=== PATIENT | female | born 1990 | race Caucasian/White ===

== ENCOUNTER 2018-03-26 16:42 | Emergency (ER) | payer BC ==
[2018-03-26] MEDS ORDERED: Sodium Chloride 0.9% 1,000 ML IV SCH (16:45)
[2018-03-26] MEDS ORDERED: Metoclopramide 10 MG/2 ML SDV IVPUSH ONE (16:46)
[2018-03-26] MEDS ORDERED: LORazepam 2 MG/ML SDV IVPUSH ONE (16:46)
[2018-03-26] MEDS ORDERED: HYDROmorphone 1 MG/ML Syringe IVPUSH ONE (16:46)
--- NOTE | 2018-03-26 16:51 | EDM.PDOC ---
ED HPI GENERAL MEDICAL PROBLEM - General Chief Complaint: Trauma Stated Complaint: FELL OFF HORSE Time Seen by Provider: 03/26/18 16:44 Source of Information: Reports: Patient History Limitations: Reports: No Limitations - History of Present Illness INITIAL COMMENTS - FREE TEXT/NARRATIVE: 27-year-old female presents to the ED by private vehicle. Apparently she was bucked off a horse location is not yet clear. She states that she could not get up or walk after being thrown off a horse. She landed hard on her right side. Most her pain is in her right lower quadrant of her abdomen along the right groin and inguinal ligament area. Denies hitting her head or losing consciousness. She is under the influence of alcohol. 90 pain on compression of her ribs. Apparently was equal to both lung goddard. He does have pain in her mid thoracic spine and lumbar spine to palpation. No obvious pelvic fractures. I could internally externally rotate both legs without evidence of fracture. Onset: Today Onset Date: 03/26/18 Onset Time: 16:00 Duration: Minutes: Location: Reports: Abdomen (Particularly right lower quadrant along the right inguinal ligament and superior to this.), Back (At the thoracolumbar junction and lumbar spine area.), Pelvis. Denies: Head, Face, Neck, Chest Quality: Reports: Ache Severity: Moderate Improves with: Reports: None Worsens with: Reports: Movement (And deep breathing) Context: Reports: Trauma (States she was bucked off a horse.). Denies: Activity , Exercise, Lifting, Sick Contact Associated Symptoms: Reports: Malaise. 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 Musculoskeletal History: Reports: Other (See Below) Other Musculoskeletal History: right hip with screws; lower back decompression 4 vertebraes(2015) - Past Surgical History Neurological Surgical History: Reports: Lumbar Spine (L4/L5/S1 microdiscectomy 2015), Other (See Below) (Patient has a screw through the right sacroiliac joint.) Musculoskeletal Surgical History: Reports: Other (See Below) (Right hip fusion 2016) Social & Family History - Living Situation & Occupation Living situation: Reports: Single, with Significant Other (Fiance), with Family (Daughter) Occupation: Employed ([employer] p[employer]) Review of Systems - Review of Systems Review Of Systems: See Below Constitutional: Reports: No Symptoms Eyes: Reports: No Symptoms Ears: Reports: No Symptoms Nose: Reports: No Symptoms Mouth/Throat: Reports: No Symptoms Respiratory: Reports: Shortness of Breath. Denies: Wheezing, Pleuritic Chest Pain, Cough Cardiovascular: Reports: No Symptoms GI/Abdominal: Reports: Abdominal Pain (Right lower quadrant) Genitourinary: Reports: No Symptoms Musculoskeletal: Reports: Back Pain (Mid thoracic and lumbar spine on palpation. Alignment is normal), Other. Denies: Leg Pain Skin: Reports: No Symptoms Neurological: Reports: No Symptoms Psychiatric: Reports: Anxiety, Other (Strong smell of alcohol her breath.) ED EXAM, GENERAL - Physical Exam Exam: See Below Exam Limited By: No Limitations General Appearance: Alert, WD/WN, Moderate Distress Eye Exam: Bilateral Eye: Normal Inspection Throat/Mouth: Normal Inspection, Normal Lips, Normal Teeth, Normal Oropharynx, Other Head: Atraumatic, Normocephalic (No evidence of any blood in the oropharynx or injury to the tongue.) Neck: Normal Inspection, Supple, Non-Tender, Full Range of Motion. No: Lymphadenopathy (L), Lymphadenopathy (R) Respiratory/Chest: Lungs Clear, Normal Breath Sounds, Chest Non-Tender, Respiratory Distress (Mild tachypnea.), Other Cardiovascular: Normal Peripheral Pulses, Regular Rate, Rhythm, No Edema, No Gallop, No Murmur, No Rub, Tachycardia (Resting tachycardia at 1 10/m) Peripheral Pulses: 3+: Posterior Tibial (L), Posterior Tibial (R), Dorsalis Pedis (L), Dorsalis Pedis (R) GI/Abdominal: Normal Bowel Sounds, Soft, Non-Tender, No Organomegaly, No Abnormal Bruit, No Mass, Pelvis Stable Back Exam: Vertebral Tenderness ( thoracic spine at the thoracolumbar junction and throughout the lumbar spine particularly L4-L5 level. Alignment appears to be normal by palpation. throughout the lumbar spine), Other (Pain to palpation mid) Extremities: Other (I could lift both legs and internally externally rotate both hips without any obvious pain or deformity) Neurological: Alert, Oriented, CN II-XII Intact, Normal Cognition Psychiatric: Anxious Skin Exam: Warm, Dry, Intact, Normal Color, No Rash Course - Vital Signs Last Recorded V/S: Last Vital Signs Temp 37.1 C 03/26/18 18:35 Pulse 90 03/26/18 18:35 Resp 16 03/26/18 18:35 BP 112/68 03/26/18 18:35 Pulse Ox 96 03/26/18 18:35 - Orders/Labs/Meds Orders: Active Orders 24 hr Category Date Time Status Sodium Chloride 0.9% [Normal Saline] 1,000 ml Med 03/26/18 16:45 Active IV ASDIRECTED Medication Orders Sodium Chloride (Normal Saline) 1,000 mls @ 150 mls/hr IV ASDIRECTED ELIZABETH Last Admin: 03/26/18 17:05 Dose: 150 mls/hr Labs: Laboratory Tests 03/26/18 03/26/18 03/26/18 Range/Units 16:50 16:50 16:50 WBC 12.89 H (3.98-10.04) K/mm3 RBC 5.13 (3.98-5.22) M/mm3 Hgb 15.4 (11.2-15.7) gm/L Hct 46.0 H (34.1-44.9) % MCV 89.7 (79.4-94.8) fl MCH 30.0 (25.6-32.2) pg MCHC 33.5 (32.2-35.5) g/dl RDW Std Deviation 41.6 (36.4-46.3) fL Plt Count 332 (182-369) K/mm3 MPV 9.9 (9.4-12.3) fl Neutrophils % (Manual) 54 (40-60) % Band Neutrophils % 0 (0-10) % Lymphocytes % (Manual) 40 (20-40) % Atypical Lymphs % 0 % Monocytes % (Manual) 1 L (2-10) % Eosinophils % (Manual) 5 (0.7-5.8) % Basophils % (Manual) 0 L (0.1-1.2) Platelet Estimate Adequate RBC Morph Comment Normal PT 9.8 (9.5-12.1) SECONDS INR < 0.93 APTT 28 (24-31) SECONDS Sodium 143 (136-145) mEq/L Potassium 3.0 L (3.5-5.1) mEq/L Chloride 106 (98-107) mEq/L Carbon Dioxide 25 (21-32) mEq/L Anion Gap 15.0 (5-15) BUN 9 (7-18) mg/dL Creatinine 0.7 (0.55-1.02) mg/dL Est Cr Clr Drug Dosing TNP Estimated GFR (MDRD) > 60 (>60) mL/min BUN/Creatinine Ratio 12.9 L (14-18) Glucose 97 (74-106) mg/dL Calcium 8.5 (8.5-10.1) mg/dL Total Bilirubin 0.2 (0.2-1.0) mg/dL AST 30 (15-37) U/L ALT 25 (14-59) U/L Alkaline Phosphatase 114 (46-116) U/L Creatine Kinase 265 H (26-192) U/L Total Protein 7.4 (6.4-8.2) g/dl Albumin 3.8 (3.4-5.0) g/dl Globulin 3.6 gm/dL Albumin/Globulin Ratio 1.1 (1-2) HCG, Qual (NEGATIVE) Urine Color (Yellow) Urine Appearance (Clear) Urine pH (5.0-8.0) Ur Specific [place] (1.005-1.030) Urine Protein (Negative) Urine Glucose (UA) (Negative) Urine Ketones (Negative) Urine Occult Blood (Negative) Urine Nitrite (Negative) Urine Bilirubin (Negative) Urine Urobilinogen (0.2-1.0) Ur Leukocyte Esterase (Negative) Urine RBC (0-5) /hpf Urine WBC (0-5) /hpf Ur Epithelial Cells (0-5) /hpf Urine Bacteria (FEW) /hpf Urine Mucus (FEW) /hpf Ethyl Alcohol 0.22 (0.00) gm% 03/26/18 03/26/18 Range/Units 16:50 18:20 WBC (3.98-10.04) K/mm3 RBC (3.98-5.22) M/mm3 Hgb (11.2-15.7) gm/L Hct (34.1-44.9) % MCV (79.4-94.8) fl MCH (25.6-32.2) pg MCHC (32.2-35.5) g/dl RDW Std Deviation (36.4-46.3) fL Plt Count (182-369) K/mm3 MPV (9.4-12.3) fl Neutrophils % (Manual) (40-60) % Band Neutrophils % (0-10) % Lymphocytes % (Manual) (20-40) % Atypical Lymphs % % Monocytes % (Manual) (2-10) % Eosinophils % (Manual) (0.7-5.8) % Basophils % (Manual) (0.1-1.2) Platelet Estimate RBC Morph Comment PT (9.5-12.1) SECONDS INR APTT (24-31) SECONDS Sodium (136-145) mEq/L Potassium (3.5-5.1) mEq/L Chloride (98-107) mEq/L Carbon Dioxide (21-32) mEq/L Anion Gap (5-15) BUN (7-18) mg/dL Creatinine (0.55-1.02) mg/dL Est Cr Clr Drug Dosing Estimated GFR (MDRD) (>60) mL/min BUN/Creatinine Ratio (14-18) Glucose (74-106) mg/dL Calcium (8.5-10.1) mg/dL Total Bilirubin (0.2-1.0) mg/dL AST (15-37) U/L ALT (14-59) U/L Alkaline Phosphatase (46-116) U/L Creatine Kinase (26-192) U/L Total Protein (6.4-8.2) g/dl Albumin (3.4-5.0) g/dl Globulin gm/dL Albumin/Globulin Ratio (1-2) HCG, Qual Negative (NEGATIVE) Urine Color Light yellow (Yellow) Urine Appearance Clear (Clear) Urine pH 7.0 (5.0-8.0) Ur Specific [place] 1.015 (1.005-1.030) Urine Protein Negative (Negative) Urine Glucose (UA) Negative (Negative) Urine Ketones Negative (Negative) Urine Occult Blood Negative (Negative) Urine Nitrite Negative (Negative) Urine Bilirubin Negative (Negative) Urine Urobilinogen 0.2 (0.2-1.0) Ur Leukocyte Esterase Negative (Negative) Urine RBC 0-5 (0-5) /hpf Urine WBC 0-5 (0-5) /hpf Ur Epithelial Cells 0-5 (0-5) /hpf Urine Bacteria Occasional (FEW) /hpf Urine Mucus Not seen (FEW) /hpf Ethyl Alcohol (0.00) gm% Meds: Medications Generic Name Dose Route Start Last Admin Trade Name Freq PRN Reason Stop Dose Admin Sodium Chloride 1,000 mls @ 150 mls/hr 03/26/18 16:45 03/26/18 17:05 Normal Saline IV 150 mls/hr ASDIRECTED ELIZABETH Administration Discontinued Medications Generic Name Dose Route Start Last Admin Trade Name Freq PRN Reason Stop Dose Admin Hydromorphone HCl 0.5 mg 03/26/18 16:46 03/26/18 17:03 Dilaudid IVPUSH 03/26/18 16:47 0.5 mg ONETIME ONE Administration Iopamidol 100 ml 03/26/18 17:13 03/26/18 17:18 Isovue-300 (61%) IVPUSH 03/26/18 17:14 100 ml ONETIME ONE Administration Lorazepam 1 mg 03/26/18 16:46 03/26/18 16:58 Ativan IVPUSH 03/26/18 16:47 1 mg ONETIME ONE Administration Metoclopramide HCl 7.5 mg 03/26/18 16:46 03/26/18 17:01 Reglan IVPUSH 03/26/18 16:47 7.5 mg ONETIME ONE Administration Sodium Chloride 10 ml 03/26/18 17:13 03/26/18 17:18 Saline Flush FLUSH 03/26/18 17:14 10 ml ONETIME ONE Administration - Radiology Interpretation Free Text/Narrative:: 27-year-old female presents to the ED after being bucked off a horse. Unclear exactly how long they've from the time of accident before she arrived in the ED. She came by private vehicle. Chief complaint is right lower quadrant abdominal pain. However she has pain at the thoracic lumbar junction throughout the lumbar spine and slightly along her right lower rib cage. Landed hard on her right side. She is dressed appropriately for the weather. No lower extremity injuries. No apparent injuries to the upper extremities head or neck. Plan Will proceed with CT chest abdomen and pelvis with IV contrast only. Also x -ray of the thoracic sick and lumbar spine will be done. - Re-Assessments/Exams Free Text/Narrative Re-Assessment/Exam: 03/26/18 18:49 CT lumbar spine shows a unilateral spondylitic defect on the right side at L5-S1. As mentioned above this is felt to be all due to slight surrounding sclerosis. There is evidence of a screw into the right sacroiliac joint from previous traumautic fixation.No acute fractures are identified on CT scan study of the abdomen and pelvis. CT thoracic spine shows nothing acute appreciated on CT of the thoracic spine. CT chest nothing acute on CT of the chest other than an old rib fracture right sixth rib. CT abdomen and pelvis reveals liver to show no focal parenchymal abnormality. Spleen appears within normal limits and ankle and show no nodules pancreas is within normal limits kidneys show symmetric contrast enhancement and appear with normal limits gallbladder contains no calcified gallstones. Aorta shows normal size and enhancement. No retroperitoneal adenopathy or mesenteric abnormalities are identified. Incidental IUD is noted within the uterus. A pelvic mass or adenopathy is noted. Bladder is slightly distended with urine appendix is seen and is normal. No bowel abnormality appreciated although oral contrast was not utilized. 03/26/18 18:53 Labs reveal a slightly elevated white count at 12.89. 54% neutrophils and no band cells reported. Hemoglobin is 15.4 with hematocrit of 46.0. MCV is 89.7. Platelet count is 332,000. He is 9.8 with an INR was less than 0.93. PTT is 28. Sodium 143 potassium slightly low at 3.0. Chloride 106 with a bicarbonate of 25. And a gap is 15.0. BUN is 9 with a creatinine of 0.7. GFR is greater than 60. Glucose is 97 with a calcium of 8.5. Liver function is normal. Creatinine kinase is 265 slightly elevated. HCG was negative blood alcohol is currently 0.22 g percent. Patient does have a full bladder but will have to use a bed holman since she isn't willing at this time to get up from her bed due to pain. No serious injuries are identified in all of the CT scans performed. Plan will be to keep her in the ED until she is a little more sober and reasonable. At this time she states she can't get up because of the pain. 03/26/18 20:55 patient has sobered up and decided to finally get up and did walk to the bathroom on her own volition. She will thus be discharged to home. Departure - Departure Time of Disposition: 20:55 Disposition: Home, Self-Care 01 Condition: Fair Clinical Impression: Contusion, abdominal wall Qualifiers: Encounter type: initial encounter Qualified Code(s): S30.1XXA - Contusion of abdominal wall, initial encounter Contusion of right hip Qualifiers: Encounter type: initial encounter Qualified Code(s): S70.01XA - Contusion of right hip, initial encounter - Discharge Information *PRESCRIPTION DRUG MONITORING PROGRAM REVIEWED*: Not Applicable *COPY OF PRESCRIPTION DRUG MONITORING REPORT IN PATIENT TAI: Not Applicable Instructions: Contusion, [id number] Referrals: PCP,None [Primary Care Provider] - Forms: ED Department Discharge Additional Instructions: Evaluation the emergency room today in regards to injuries sustained from being bucked off a horse. History suggests that you landed hard on your right side. Pain primarily in your right lower abdominal wall above the inguinal ligament and right hip. Neck were within normal limits. Chest wall showed no evidence of any trauma. CT of your back i.e. thoracic and lumbar spine was carried out and reveals evidence of old trauma to the right SI joint with previous fixation. Well grown together infused with no sign of fractures. No fractures are identified throughout the thoracic or lumbar spine. Chest CT showed an old fracture sixth rib it is healed. No injury to the lung or heart was identified. Also similarly CT of the abdomen did not show any injuries to the liver the spleen the kidneys. There is increased stool throughout the colon. Uterus contains an IUD. No injuries to the intra-abdominal organs was identified. Pelvis is otherwise uninjured. Her alcohol was 0.22 g percent and therefore you are not be able to operate a motor vehicle for 16-18 hours until your blood alcohol level would be under 0.08. Expect to be stiff and sore over the next couple of days from falling from the horse. Motrin 600 mg every 6 hours needed for repeat LEEP for pain and inflammation. Ice pack to sore areas one half hour out of every 4 hours for the next 2 days and then may apply heat to sore areas. - My Orders Last 24 Hours: My Active Orders 03/26/18 16:45 Sodium Chloride 0.9% [Normal Saline] 1,000 ml IV ASDIRECTED - Assessment/Plan Last 24 Hours: My Active Orders 03/26/18 16:45 Sodium Chloride 0.9% [Normal Saline] 1,000 ml IV ASDIRECTED
[2018-03-26] MEDS ORDERED: Iopamidol 612 MG/ML 100 ML Bottle IVPUSH ONE (17:13)
[2018-03-26] MEDS ORDERED: Sodium Chloride 0.9% 10 ML Syringe FLUSH ONE (17:13)
--- NOTE | 2018-03-26 18:15 | CT ---
CT chest Technique: Multiple axial sections through the chest were obtained. Intravenous contrast was utilized. Comparison: No prior chest CT, chest x-ray performed on 02/05/18 is available. Findings: Slight soft tissue density is noted within the superior mediastinum felt to relate to residual thymic tissue. Mediastinum and hilar regions show no adenopathy or mass. Opacified great vessel shows no discrete abnormality. Pulsation artifact is noted within the ascending aorta. No pleural effusions are seen. Lungs are clear. No pulmonary contusion is seen. No pleural effusions or pneumothorax is seen. Old rib fracture with callus is seen within the right sixth rib. Reconstructed sagittal images shows no discrete fracture within the sternum. Impression: 1. Nothing acute is seen on CT study of the chest. 2. Incidental note of old rib fracture within the right sixth rib. Diagnostic code #2 CT abdomen and pelvis Technique: Multiple axial sections were obtained from above the dome of the diaphragm inferiorly through the pubic symphysis. Intravenous contrast was utilized. No oral contrast has been given. Comparison: No prior abdominal or pelvic imaging. Findings: Liver shows no focal parenchymal abnormality. Spleen appears within normal limits. Adrenal glands show no nodule. Pancreas is within normal limits. Kidneys show symmetric contrast enhancement and appear within normal limits. Gallbladder contains no calcified gallstones. Aorta shows normal size and enhancement. No retroperitoneal adenopathy or mesenteric abnormalities are seen. Incidental IUD is noted within the uterus. No pelvic mass or adenopathy is seen. Bladder is slightly distended with urine. Appendix is seen and is normal. No bowel abnormality appreciated although oral contrast was not utilized. Bone window settings shows fixation screws across the right sacroiliac joint. No acute fracture is seen within the pelvis. Impression: 1. Incidental findings. Nothing acute is appreciated on CT study of the abdomen and pelvis. Diagnostic code #2
--- NOTE | 2018-03-26 18:24 | CT ---
CT lumbar spine Technique: Multiple axial sections through the lumbar spine were obtained. Reconstructed sagittal and coronal images were reviewed. Comparison: Previous MRI lumbar spine study of 05/13/14 was utilized. Findings: Vertebral body heights and disc spaces are preserved. Fixation screws is again seen across the right sacroiliac joint. Minimal degenerative change is noted within the right apophyseal joint. No acute fracture is seen. No traumatic disc herniation is seen. No abnormal subluxation is seen. Spondylolytic defect is seen seen unilaterally on the right side at L5-S1 which appears old as slight sclerosis is seen around this region. Impression: 1. 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 As mentioned above, this is felt to be old due to slight surrounding sclerosis. 2. Nothing acute is seen on CT study of the abdomen and pelvis. Diagnostic code #2
--- NOTE | 2018-03-26 18:24 | CT ---
CT thoracic spine Technique: Multiple axial sections were obtained through the thoracic spine. Reconstructed coronal and sagittal images were reviewed. Comparison: No prior thoracic spine study. Findings: Vertebral body heights and disc spaces are maintained. Vertebral bodies and posterior arches are intact with no fracture being seen. No disc herniation is appreciated. No abnormal subluxation is seen. No bony central or bony neural foraminal stenosis is seen. Impression: 1. Nothing acute is appreciated on CT study of the thoracic spine. Diagnostic code #1
== END 2018-03-26 21:10 | disposition home or self-care (01) ==
LOC: JD.ED 16:42
DX: S30.1XXA Contusion of abdominal wall, initial encounter (principal); S70.01XA Contusion of right hip, initial encounter; V80.010A Animal-rider injured by fall from or being thrown from horse in noncollision accident, initial encounter
CPT/HCPCS: 36415; 71260; 72128; 72131; 74177; 80053; 80306; 81001; 82550; 84703; 85007; 85027; 85610; 85730; 96361; 96374; 96375; 99284; G0480; J1170; J2060; J2765; J7040; Q9967

== ENCOUNTER 2020-11-20 18:12 | Emergency (ER) | payer SELFPAY ==
[2020-11-20] MEDS ORDERED: Lactated Ringers 1,000 ML IV ONE (19:11)
[2020-11-20] MEDS ORDERED: Sodium Chloride 0.9% 10 ML Syringe FLUSH PRN (19:11)
[2020-11-20] MEDS ORDERED: Prochlorperazine 10 MG in Sodium Chloride 0.9% 50 ML IV ONE (20:06)
[2020-11-20] MEDS ORDERED: Ketorolac 15 MG/ML SDV IVPUSH ONE (20:06)
--- NOTE | 2020-11-20 20:10 | EDM.PDOC ---
ED HPI GENERAL MEDICAL PROBLEM - General Chief Complaint: Fever Stated Complaint: SENT BY [facility] Time Seen by Provider: 11/20/20 19:45 - History of Present Illness INITIAL COMMENTS - FREE TEXT/NARRATIVE: Patient seen earlier at [facility] and referred to ED for evaluation Reports onset of symptoms 11/06 Endorses headache, fever, body aches, abdominal pain Symptoms improved after about 1 week Had recurrence of symptoms a couple days later Had diarrhea couple days ago vomited 3 times today Denies cough, dyspnea, or sore throat She received treatment at [facility] with IV fluid and antiemetic medication Lab testing showed WBC 30,000, urinalysis unremarkable Bilateral Abdominal Pain Score (Numeric/FACES): 8 - Related Data Allergies Allergy/AdvReac Type Severity Reaction Status Date / Time No Known Drug Allergies Allergy n/a Verified 11/20/20 18:44 Home Meds: Home Meds Prochlorperazine Maleate 10 mg PO Q6H PRN #12 tablet 11/20/20 [Rx] Past Medical History - Past Health History Medical/Surgical History: Denies Medical/Surgical History Other [employer] History: Denies possibility of due to intrauterine device. Musculoskeletal History: Reports: Other (See Below) Other Musculoskeletal History: right hip with screws; lower back decompression 4 vertebraes(2014) - Past Surgical History Neurological Surgical History: Reports: Lumbar Spine, Other (See Below) Musculoskeletal Surgical History: Reports: Other (See Below) Social & Family History - Tobacco Use Tobacco Use Status *Q: Never Tobacco User - Caffeine Use Caffeine Use: Reports: Coffee - Recreational Drug Use Recreational Drug Use: No - Living Situation & Occupation Living situation: Reports: Single, with Significant Other (Fiance), with Family (Daughter) 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) ED ROS GENERAL - Review of Systems Review Of Systems: See Below Musculoskeletal: Reports: Arm Pain Free Text/Narrative/Comment: Constitutional - fever; malaise Eyes - no eye pain; no visual disturbance ENT - no rhinorrhea; no congestion; no epistaxis Cardiovascular - no chest pain Respiratory - no shortness of breath; no cough Gastrointestinal - abdominal pain; no nausea; vomiting; diarrhea Genitourinary - no dysuria Musculoskeletal - no neck pain; no back pain; no extremity injury; myalgias Neurological - headache; no speech disturbance; no weakness ED EXAM, GENERAL - Physical Exam Exam: See Below Free Text/Narrative:: Constitutional - awake; alert; mild general distress Head - no facial swelling or weakness Eyes - extra ocular motion intact; conjunctiva normal ENT - no nasal deformity; no epistaxis; normal phonation; mucus membranes moist; Neck - no swelling Respiratory - normal respiratory effort; no crackles or wheezing; no stridor Cardiovascular - regular rhythm; tachycardia; S1; S2; grade 1/6 systolic murmur GI/Abdomen - normal bowel sounds; soft; mild tenderness mid abdomen; no rebound; no guarding; no mass Musculoskeletal - grossly normal strength and motion; no swelling or deformity Skin - warm; dry Neurologic - normal speech; no weakness Psychiatric - normal mood and affect; memory and attention normal Course - Vital Signs Text/Narrative:: Considered etiologies included: headache, myalgia, fatigue, abdominal pain, viral syndrome, COVID-19, sepsis, bacteremia Symptoms and examination were discussed Investigations were initiated Empiric treatment was provided with IV fluid infusion, ketorolac, and prochlorperazine At re-evaluation there was improvement in symptoms Results were discussed There were no findings for sepsis Clinical presentation was consistent with viral syndrome She was advised that COVID-19 could not be excluded Symptomatic treatment was reviewed Patient was felt to be stable for outpatient follow-up Return precautions were provided Last Recorded V/S: Last Vital Signs Temp 36.9 C 11/20/20 18:42 Pulse 113 H 11/20/20 18:42 Resp 16 11/20/20 18:42 BP 120/75 11/20/20 18:42 Pulse Ox 98 11/20/20 18:42 - Orders/Labs/Meds Labs: Laboratory Tests 11/20/20 11/20/20 11/20/20 Range/Units 19:50 19:50 20:00 WBC 25.90 H (3.98-10.04) K/mm3 RBC 3.65 L (3.98-5.22) M/mm3 Hgb 11.7 D (11.2-15.7) gm/dl Hct 36.6 (34.1-44.9) % MCV 100.3 H D (79.4-94.8) fl MCH 32.1 (25.6-32.2) pg MCHC 32.0 L (32.2-35.5) g/dl RDW Std Deviation 44.4 (36.4-46.3) fL Plt Count 299 (182-369) K/mm3 MPV 9.9 (9.4-12.3) fl Neutrophils % (Manual) 74 H (40-60) % Band Neutrophils % 9 (0-10) % Lymphocytes % (Manual) 11 L (20-40) % Atypical Lymphs % 0 % Monocytes % (Manual) 4 (2-10) % Eosinophils % (Manual) 2 (0.7-5.8) % Basophils % (Manual) 0 L (0.1-1.2) Platelet Estimate Adequate RBC Morph Comment Normal Sodium 137 (136-145) mEq/L Potassium 3.4 L (3.5-5.1) mEq/L Chloride 101 (98-107) mEq/L Carbon Dioxide 25 (21-32) mEq/L Anion Gap 14.4 (5-15) BUN 10 (7-18) mg/dL Creatinine 1.1 H (0.55-1.02) mg/dL Est Cr Clr Drug Dosing 67.90 mL/min Estimated GFR (MDRD) 59 (>60) mL/min BUN/Creatinine Ratio 9.1 L (14-18) Glucose 84 (70-99) mg/dL Lactic Acid 0.9 (0.4-2.0) mmol/L Calcium 8.0 L (8.5-10.1) mg/dL Total Bilirubin 0.2 (0.2-1.0) mg/dL AST 7 L (15-37) U/L ALT 14 (14-59) U/L Alkaline Phosphatase 70 (46-116) U/L Total Protein 6.2 L (6.4-8.2) g/dl Albumin 2.0 L (3.4-5.0) g/dl Globulin 4.2 gm/dL Albumin/Globulin Ratio 0.5 L (1-2) SARS-CoV-2 RNA (BRITTANI) (NEGATIVE) 11/20/20 Range/Units 20:06 WBC (3.98-10.04) K/mm3 RBC (3.98-5.22) M/mm3 Hgb (11.2-15.7) gm/dl Hct (34.1-44.9) % MCV (79.4-94.8) fl MCH (25.6-32.2) pg MCHC (32.2-35.5) g/dl RDW Std Deviation (36.4-46.3) fL Plt Count (182-369) K/mm3 MPV (9.4-12.3) fl Neutrophils % (Manual) (40-60) % Band Neutrophils % (0-10) % Lymphocytes % (Manual) (20-40) % Atypical Lymphs % % Monocytes % (Manual) (2-10) % Eosinophils % (Manual) (0.7-5.8) % Basophils % (Manual) (0.1-1.2) Platelet Estimate RBC Morph Comment Sodium (136-145) mEq/L Potassium (3.5-5.1) mEq/L Chloride (98-107) mEq/L Carbon Dioxide (21-32) mEq/L Anion Gap (5-15) BUN (7-18) mg/dL Creatinine (0.55-1.02) mg/dL Est Cr Clr Drug Dosing mL/min Estimated GFR (MDRD) (>60) mL/min BUN/Creatinine Ratio (14-18) Glucose (70-99) mg/dL Lactic Acid (0.4-2.0) mmol/L Calcium (8.5-10.1) mg/dL Total Bilirubin (0.2-1.0) mg/dL AST (15-37) U/L ALT (14-59) U/L Alkaline Phosphatase (46-116) U/L Total Protein (6.4-8.2) g/dl Albumin (3.4-5.0) g/dl Globulin gm/dL Albumin/Globulin Ratio (1-2) SARS-CoV-2 RNA (BRITTANI) Negative (NEGATIVE) Meds: Medications Discontinued Medications Generic Name Dose Route Start Last Admin Trade Name Freq PRN Reason Stop Dose Admin Lactated Ringer's 1,000 mls @ 999 mls/hr 11/20/20 19:11 11/20/20 19:22 Ringers, Lactated IV 11/20/20 20:11 999 mls/hr .BOLUS ONE Administration Prochlorperazine Edisylate 10 52 mls @ 150 mls/hr 11/20/20 20:06 11/20/20 20:27 mg/ Sodium Chloride IV 11/20/20 20:26 150 mls/hr ONETIME ONE Administration Ketorolac Tromethamine 15 mg 11/20/20 20:06 11/20/20 20:27 Ketorolac 15 Mg/Ml Sdv IVPUSH 11/20/20 20:07 15 mg ONETIME ONE Administration Sodium Chloride 10 ml 11/20/20 19:11 11/20/20 19:22 Sodium Chloride 0.9% 10 Ml Syringe FLUSH 10 ml ASDIRECTED PRN Administration Keep Vein Open - Radiology Interpretation Free Text/Narrative:: XR Chest, AP portable, interpreted by clinical writer: GOYO Departure - Departure Time of Disposition: 22:54 Disposition: Home, Self-Care 01 Clinical Impression: Viral syndrome, Febrile illness, Leukocytosis - Discharge Information *PRESCRIPTION DRUG MONITORING PROGRAM REVIEWED*: Not Applicable *COPY OF PRESCRIPTION DRUG MONITORING REPORT IN PATIENT TAI: Not Applicable Prescriptions: Prochlorperazine Maleate 10 mg PO Q6H PRN #12 tablet PRN Reason: Nausea or GI distress Instructions: Leukocytosis, Viral Illness, Adult Referrals: Krista Musa MD [Primary Care Provider] - Forms: ED Department Discharge Additional Instructions: Your symptoms are consistent with a viral syndrome, which could include COVID-19 COVID testing can confirm the infection, however a negative test does not rule it out Consider repeat COVID testing in 1-2 days Return if condition worsens May resume general activity and regular diet as tolerated Continue usual medications May take PROCHLORPERAZINE as prescribed, as needed for nausea Follow-up with primary care provider is recommended in 3 to 5 days Sepsis Event Note (ED) - Evaluation Sepsis Screening Result: Possible Severe Sepsis Risk
--- NOTE | 2020-11-21 08:57 | CR ---
Chest: Portable view of the chest was obtained. Comparison: Prior chest x-ray of 02/05/18. Heart size and mediastinum are within normal limits. Lungs are clear with no acute parenchymal change. Bony structure shows nothing acute. Impression: 1. Nothing acute is seen on portable chest x-ray. Diagnostic code #1
== END 2020-11-20 23:10 | disposition home or self-care (01) ==
LOC: JD.ED 18:12
DX: B34.9 Viral infection, unspecified (principal); D72.829 Elevated white blood cell count, unspecified; Z20.822 Contact with and (suspected) exposure to COVID-19
CPT/HCPCS: 36415; 71045; 80053; 83605; 85007; 85027; 87040; 87635; 96365; 96375; 99284; J0780; J1885; J7120; U0002